=== PATIENT | female | born 1995 | race Caucasian/White ===

== ENCOUNTER 2019-06-24 22:27 | Emergency (ER) | payer SELFPAY ==
[2019-06-25] MEDS ORDERED: NORMAL SALINE 1000 ML 1,000 ML IV ONE (00:57)
--- NOTE | 2019-06-25 01:45 | RADIOLOGY REPORT (SQ) ---
EXAM DESCRIPTION: XR ABDOMEN SUPINE AND ERECT WITH CHEST (ABD ACUTE SERIES) COMPLETED DATE/TME: 06/25/2019 00:56 CLINICAL HISTORY: 23 years, Female, drug overdose COMPARISON: None. NUMBER OF VIEWS: 3 TECHNIQUE: 2 view abdomen. 1 view chest LIMITATIONS: None. FINDINGS: Cardiomediastinal silhouette is prominent. Presumed pectus excavatum configuration of the chest exaggerating the apparent size of the cardiac silhouette. This would also explain the apparent interstitial changes in the pericardiac distribution. No consolidation. No effusion or pneumothorax. Nonspecific gas pattern. No obstruction or free air. Phleboliths within the pelvis. Apparent partly radiopaque pills are identified projecting over the lower pelvis, either rectum or vagina. The may be external to the patient. IMPRESSION: No acute process. Please see comments above copyright 2011 [employer]- All Rights Reserved
[2019-06-25 02:14] LABS: ABSOLUTE BASOPHILS # (AUTO) 0.1 10^3/uL (0.0-0.2); ABSOLUTE EOSINOPHILS # (AUTO) 0.2 10^3/uL (0.0-0.6); ABSOLUTE LYMPHOCYTES (AUTO) 2.8 10^3/uL (0.5-4.7); ABSOLUTE MONOCYTES (AUTO) 0.5 10^3/uL (0.1-1.4); ABSOLUTE NEUT (AUTO) 3.7 10^3/uL (1.7-8.2); BASOPHILS % (AUTO) 0.8 % (0-2); EOSINOPHILS % (AUTO) 2.9 % (0-6); HEMATOCRIT 37.8 % (36.0-47.0); HEMOGLOBIN 12.6 g/dL (12.0-15.5); LYMPHOCYTES % (AUTO) 39.1 % (13-45); MEAN CORPUSCULAR HGB CONC 33.3 g/dL (32.0-36.0); MEAN CORPUSCULAR VOLUME 90 fl (80-97); PLATELET COUNT 264 10^3/uL (150-450); RED CELL DISTRIBUTION WIDTH 12.6 % (11.5-14.0); SEGMENTED NEUTROPHILS % (AUTO) 50.2 % (42-78); TOTAL CELLS COUNTED % (AUTO) 100 %; WHITE BLOOD COUNT 7.3 10^3/uL (4.0-10.5)
[2019-06-25 02:38] LABS: ALBUMIN 3.5 g/dL (3.5-5.0); ALKALINE PHOSPHATASE 55 U/L (38-126); ANION GAP 5 (5-19); ASPARTATE AMINO TRANSFERASE 47 U/L (14-36); BILIRUBIN,TOTAL 0.3 mg/dL (0.2-1.3); BLOOD UREA NITROGEN 4 mg/dL (7-20); CALCIUM 8.9 mg/dL (8.4-10.2); CARBON DIOXIDE 28 mmol/L (22-30); CHLORIDE 104 mmol/L (98-107); GLUCOSE 87 mg/dL (75-110); POTASSIUM 4.1 mmol/L (3.6-5.0); TOTAL PROTEIN 6.8 g/dL (6.3-8.2)
[2019-06-25 02:42] LABS: ACETAMINOPHEN < 10 ug/mL (10-30); ALCOHOL < 10 mg/dL (NONE DETECTED); SALICYLATE < 1.0 mg/dL (2.0-20.0)
[2019-06-25 04:37] LABS: APPEARANCE,URINE CLOUDY; BILIRUBIN,URINE NEGATIVE (NEGATIVE); COLOR,URINE YELLOW; GLUCOSE, URINE NEGATIVE (NEGATIVE); KETONES,URINE NEGATIVE (NEGATIVE); LEUKOCYTE ESTERASE,URINE SMALL (NEGATIVE); NITRITE,URINE NEGATIVE (NEGATIVE); PROTEIN,URINE 100 mg/dL (NEGATIVE); URINE SPECIFIC GRAVITY 1.023; UROBILINOGEN,URINE NEGATIVE mg/dL (<2.0)
[2019-06-25 04:40] LABS: URINE BARBITURATES SCREEN NEGATIVE; URINE MARIJUANA (THC) SCREEN NEGATIVE; URINE METHADONE SCREEN NEGATIVE; URINE PHENCYCLIDINE SCREEN NEGATIVE
[2019-06-25 04:57] LABS: URINE BENZODIAZEPINES SCREEN UNCONFIRMED POSITIVE; URINE COCAINE SCREEN UNCONFIRMED POSITIVE
[2019-06-25] MEDS ORDERED: NITROFURANTOIN MONOHYD/M-CRYST 100 MG CAPSULE PO ONE (05:51)
--- NOTE | 2019-06-25 06:07 | ER Document Report ---
Entered by IVAN KENYON SCRIBE 06/25/19 0012 Acting as scribe for:SHARDA JORGENSEN MD ED General - General Chief Complaint: Accidental Overdose Stated Complaint: POSSIBLE OVERDOSE Time Seen by Provider: 06/24/19 23:16 Information source: Patient, Friend Notes: 23-year-old female presents to the emergency department complaining of a heroin overdose. Patient reports that she "overdosed on heroin" and she "was just trying to get high" when asked if she was doing it to harm herself. Patient states that her "tolerance is a lot lower" and she "seems like she can handle it one day but the next day she can't". Patient's roommate states that patient has been using heroin by IV and Xanax by mouth. Patient's roommate reports that patient just came back 3 weeks ago from a 90-day rehab stay. Patient's roommate states that patient came back from rehab in a good mindset until she was told by her grandfather that she could not return until "she proved herself". Patient's roommate states that she has overdosed 8 times since this call from her grandfather. Patient's roommate says that after overdose 3 days ago, patient said that she is trying to hurt herself. Patient reports headache and denies hallucinations, suicidal ideation and homicidal ideation. Patient reports last normal menstrual period as almost a month ago. TRAVEL OUTSIDE OF THE [place] IN LAST 30 DAYS: No - Related Data Allergies/Adverse Reactions: No Known Allergies Allergy (Unverified 06/24/19 23:13) Past Medical History - General Information source: Patient, Friend - Social History Smoking Status: Current Every Day Smoker Cigarette use (# per day): Yes Chew tobacco use (# tins/day): No Drug Abuse: Cocaine, Heroin, Prescription drugs - Xanax Lives with: Friend Family History: Reviewed & Not Pertinent Patient has suicidal ideation: No Patient has homicidal ideation: No - Medical History Medical History: Negative Surgical Hx: Negative Review of Systems - Review of Systems Constitutional: No symptoms reported EENT: No symptoms reported Cardiovascular: No symptoms reported Respiratory: No symptoms reported Gastrointestinal: No symptoms reported Genitourinary: No symptoms reported Female Genitourinary: See HPI, Last menstrual period Musculoskeletal: No symptoms reported Skin: No symptoms reported Hematologic/Lymphatic: No symptoms reported Neurological/Psychological: See HPI, Headaches. denies: Hallucinations, Homicidal ideation, Suicidal ideation -: Yes All other systems reviewed and negative Physical Exam - Vital signs Vitals: Temp Resp BP 97.8 F 18 100/71 06/24/19 22:45 06/24/19 22:45 06/24/19 22:45 - Notes Notes: Physical Exam: General: Needed to be asked many times and tapped for some answers. HEENT: Normocephalic. Atraumatic. PERRL. Extraocular movements intact. Oropharynx clear. Multiple caries and overall decay in the mouth. Neck: Supple. Non-tender. Respiratory: No respiratory distress. Clear and equal breath sounds bilaterally. Cardiovascular: Regular rate and rhythm. Abdominal: Normal Inspection. Non-tender. No distension. Normal Bowel Sounds. Back: No gross abnormalities. Extremities: Moves all four extremities. Upper extremities: Normal inspection. Normal ROM. Lower extremities: Normal inspection. No edema. Normal ROM. Skin: Warm. Dry. Normal color. Course - Re-evaluation Re-evalutation: Patient is sleeping and resting comfortably. Vital signs are stable 06/25/19 05:53 - Vital Signs Vital signs: Temp Pulse Resp BP Pulse Ox 97.8 F 17 99/67 L 94 06/24/19 22:45 06/25/19 05:15 06/25/19 05:15 06/25/19 05:15 - Laboratory Result Diagrams: 06/25/19 02:07 06/25/19 02:07 Laboratory results interpreted by me: 06/25/19 06/25/19 02:07 04:08 BUN 4 L Creatinine 0.46 L AST 47 H ALT 49 H Lipase < 10.0 L Urine Protein 100 H Urine Blood LARGE H Ur Leukocyte Esterase SMALL H Salicylates < 1.0 L Acetaminophen < 10 L - Diagnostic Test Radiology reviewed: Image reviewed, Reports reviewed Radiology results interpreted by me: 06/25/19 05:54 Acute abdominal abdominal series x-ray shows no acute process. - EKG Interpretation by Me Additional EKG results interpreted by me: 06/25/19 06:03 Twelve-lead EKG done 06/25/2019 time 149 sinus tachycardia rate of 103 borderline T abnormalities anterior leads lateral leads. Discharge - Discharge Clinical Impression: Polysubstance dependence including opioid type drug, episodic abuse, Accidental overdose, Urinary tract infection Condition: Fair Disposition: PSYCH HOSP/UNIT Instructions: Nitrofurantoin ([facility]), Urinary Tract Infection ([facility]) Additional Instructions: Overdose You have taken more medication than you should have. After your evaluation and care, it is felt that your overdose is not likely to be harmful or of any significant consequences to you and you are being discharged. In the future, you should be careful not to take more medications than what is prescribed for you. Although your overdose does not seem to be of any danger to you at this time, if you develop any unusual or unexpected symptoms after your discharge, you should return to the Emergency Department immediately for re-evaluation. Prescriptions: Nitrofurantoin Monohyd/M-Cryst [Macrobid 100 mg Capsule] 100 mg PO BID #20 cap I personally performed the services described in the documentation, reviewed and edited the documentation which was dictated to the scribe in my presence, and it accurately records my words and actions.
--- NOTE | 2019-06-25 09:46 | ER Document Report ---
Doctor's Note Notes: 06/25/19 09:54 Chart reviewed patient rounded on. Patient reports that she is ready to go home. She denies suicidal or homicidal ideations. Reports she is overdosed in the past 3 weeks at least 8 times. She reports she has not done it on purpose. She reports if she was suicidal she knows how to kill herself and she would be found. Patient also reports that she has a Stokes. She reports she has had it since last Monday. She reports she had a UTI did not take her medications and so she went to [facility] emergency department last Monday where they placed a Stokes. They also placed her on antibiotics. She has been taking them since Monday. She is supposed to follow-up with the urologist this week or return to the emergency department at [facility]. She denies abdominal pain. Denies fever vomiting diarrhea. She repeats she just wants to go home. Patient's roommate is at her side. He reports he will be taking care of patient. Patient discharged. PHYSICAL EXAMINATION: GENERAL: Disheveled nontoxic looking HEAD: Atraumatic, normocephalic. EYES: extraocular movements intact, sclera anicteric, conjunctiva are normal. ENT: nares patent, oropharynx clear Moist mucous membranes. Spread dental disease NECK: Normal range of motion, supple LUNGS: CTAB and equal. No wheezes rales or rhonchi. HEART: Regular rate and rhythm without murmurs ABDOMEN: Soft, no tenderness. No guarding, no rebound EXTREMITIES: Normal range of motion, NEUROLOGICAL: Cranial nerves grossly intact. PSYCH: Normal mood, normal affect. Calm SKIN: Warm, Dry, normal turgor,
--- NOTE | 2019-06-25 10:04 | PSYCHOLOGICAL NOTE ---
Psych Note - Psych Note Date seen by psych provider: 06/25/19 Time seen by psych provider: 08:35 Psych Note: Reason For Consult:accidental overdose Consent Permissions:patient's friend, Haim, at bedside per patient's request Patient discloses that she just got out of [facility] after 90 days. She reports that she is attempted to decrease the amount of heroin she is uses so she does not overdose however has had some difficulties. She reports "I should do 15 1617 shots and one time twice a day, when I got out I tried using 2 bags again and overdosed so I decreased it to 1 bag and still overdosed this time I tried using just a half a bag and still overdosed." She confirms she has an addiction problem however is not experiencing withdrawal symptoms currently. She states she has been using since approximately age 16. She denies wanting to harm herself and states "if I wanted to harm myself, I would not surround myself with people to ensure that if I did overdose they be able to help." She reports she wants assistance and will request assistance from her local area. She states that she is already talking to her guest services officer about getting into [facility]. Patient's friend reports concern wanting the patient to go inpatient for treatment stating the patient has significant trauma history in addition to substance abuse. He reports that the patient will just get [facility] in [facility] and she will not receive the treatment she needs. He reports he feels guilty that he bailed her out because she sounded like she was doing so well after getting sober while at [facility]. He continues to report that he is very adamant he does not want the patient involuntarily committed in [facility] he wants to be able to take her to [place] to receive services. Clinician attempted to provide psychoeducation in regards to voluntary versus involuntary, mental health versus substance abuse verses duel diagnosis treatment etc. Patient's friend continues just report he does not want her to go back to [facility]. Patient is alert and orientated to person, place, time and circumstance. Mood is overall euthymic with congruent affect however, she is clearly tired. Patient denies suicidal and homicidal ideation. Delusions are absent and behaviors congruent with an intact reality based presentation ie organized and linear thought process. Eye contact is fair. Conversational speech is within normal rate, tone and prosody. Intellectual abilities appear to be within the average range. Attention and concentration are good. Insight, judgment, impulse control are appear to be poor due to drug use. Impression\\plan: Patient is cleared from acute psychiatric services. Patient confirms long history of substance abuse specifically heroin however states that she will use anything in front of her if she gets a chance. Patient is currently on probation from [place] and is not supposed to be in the local area and is asking to be discharged so she can get back to [place] for her scheduled probation appointment. Patient was just in [facility] for 90 days however after being released quickly realized she does not have the same tolerance. She reports that she has been decreasing amount of heroin she uses every time but still has been overdosing accidentally. At this time her friend confirms he would like to be able to return to [place] with the patient to follow-up with providers of their local area. Dr. Lai was consulted to care management of this patient; attending physicians in agreement with recommendations and disposition.
[2019-06-25 10:29] VITALS: BP 102/62
--- NOTE | 2019-06-25 11:30 | EKG REPORT ---
SEVERITY:- BORDERLINE ECG - SINUS TACHYCARDIA BORDERLINE T ABNORMALITIES, ANT-LAT LEADS : Confirmed by: Daniel Haynes 25-Jun-2019 11:29:18
== END 2019-06-25 10:29 | disposition home or self-care (01) ==
LOC: ER 22:27
DX: T40.1X1A Poisoning by heroin, accidental (unintentional), initial encounter (principal); N39.0 Urinary tract infection, site not specified; F19.10 Other psychoactive substance abuse, uncomplicated; F11.20 Opioid dependence, uncomplicated; Y92.9 Unspecified place or not applicable; F17.210 Nicotine dependence, cigarettes, uncomplicated
CPT/HCPCS: 93005; 36415; 80307 ×4; 83690; 85025; 81025; 80053; 81001; 84484; 74022; 93010; J7030; J8499; 87086; 87088; 96360; 96361; 99285